=== PATIENT | female | born 1985 | race Caucasian/White ===

== ENCOUNTER 2016-11-17 14:44 | Outpatient (CLI) | payer BC ==
[~2016-11-17] VITALS: Ht 160 cm; Wt 83.9 kg
[~2016-11-17 14:44] MED LIST: ALBUAER2 INH; CALC500C3 PO; LORA10CA2 PO; PRENTAB26 PO
[2016-11-17 15:25] VITALS: Ht 160 cm; Wt 83.9 kg
[2016-11-17] MEDS ORDERED: FERR1TAB23 PO (16:14)
--- NOTE | 2016-11-17 16:44 | Progress Note ---
Progress Note Date of Service Nov 17, 2016. Progress Note Pt seen and examined for labor check Pt called the office with c/o irreg ctx at 37 weeks. . prior C/sec x 2 Scheduled for repeat c/sec o 11/30/16 VE on arrival is cl/thick/post unchanged after 1.5hrs of monitoring FHR; CAT1 Minimal infrequent ctx discussed finding with pt and her father plan D/c home with labor instructions
--- NOTE | 2016-11-17 16:46 | Discharge Instructions ---
Discharge Instructions Date of Service Nov 17, 2016. Admission Reason for Admission: Check Labor Discharge Discharge Diagnosis / Problem: labor check Discharge Goals Goal(s): Continuing OB care Activity Recommendations Activity Limitations: as noted below SPECIAL CARE INSTRUCTIONS: Call Doctor if: * Regular contractions every 5 minutes or greater than contractions in one hour. * Bleeding * Water breaks or is leaking * Decreased movement * Fever >100.4 degrees F * Pain not relieved by routine measures or pain medication ordered. FOLLOW UP VISIT: Return to Labor and Delivery on for /call for appointment time . Follow-up Visit with: When: . Current Hospital Diet Patient's current hospital diet: Discharge Diet Recommended Diet: Regular Diet Pending Studies Studies pending at discharge: no Medical Emergencies . Who to Call and When: Medical Emergencies: If at any time you feel your situation is an emergency, please call 911 immediately. . Non-Emergent Contact Non-Emergency issues call your: Specialist . . "Provider Documentation" section prepared by Harinder Posadas. . VTE Core Measure Inpt VTE Proph given/why not?: Treatment not indicated
[2016-11-21] MEDS ORDERED: FLVHFA110 INH (09:24)
[2016-11-21] MEDS ORDERED: ALBU18002 INH (09:24)
== END 2016-11-17 16:45 | disposition home or self-care (01) ==
LOC: C.OPB 14:44 → C.LD 14:44 → C.OPB 16:45
PROVIDERS: ATTEND Obstetrics & Gynecology
DX: Z34.83 Encounter for supervision of other normal pregnancy, third trimester (principal); Z3A.37 37 weeks gestation of pregnancy

== ENCOUNTER 2016-11-30 05:42 | Inpatient (IN) | payer BC ==
[2016-11-21 09:13] VITALS: BMI 33.0
--- NOTE | 2016-11-21 09:33 | PAT Medication Instructions ---
Service Date Nov 21, 2016. Current Home Medication List Albuterol Sulfate (Proair Respiclick), 2 PUFF INH DAILY PRN for SOB/Wheezing Calcium Carbonate (Tums), 2 TAB PO PRN Ferrous Sulfate (Iron), 1 TAB PO QPM Fluticasone Propionate (Flovent Hfa), 2 PUFFS INH BID Multivit/Min/Iron/Fol Ac/Pren ( Vitamin), 1 TAB PO QPM Medication Instructions For Your Scheduled Surgery - Hold the following medications the morning of surgery: Calcium Carbonate (Tums), 2 TAB PO PRN - Take the following medications the morning of surgery: Albuterol Sulfate (Proair Respiclick), 2 PUFF INH DAILY PRN for SOB/Wheezing ( BRING WITH YOU THE MORNING OF THE SURGERY) Fluticasone Propionate (Flovent Hfa), 2 PUFFS INH BID - Take the following medications as scheduled the night before surgery: Ferrous Sulfate (Iron), 1 TAB PO QPM Fluticasone Propionate (Flovent Hfa), 2 PUFFS INH BID Multivit/Min/Iron/Fol Ac/Pren ( Vitamin), 1 TAB PO QPM Calcium Carbonate (Tums), 2 TAB PO PRN If you have any questions please call us at [phone] or [phone] or [phone]
[2016-11-21 10:42] LABS: BASO % 0.2 %; BASO ABS # 0.02 K/uL (0-0.2); COMPLETE YES; EOS % 2.4 %; HEMATOCRIT 33.6 % (37-47); IG% 0.6 %; LYMPH % 14.5 %; LYMPH ABS # 1.27 K/uL (1.2-3.4); MEAN CELL VOLUME 92.3 fL (80-100); MEAN CORPUSCULAR HEMOGLOBIN 30.2 pg (25-34); MEAN CORPUSCULAR HGB CONC 32.7 g/dl (32-36); MEAN PLATELET VOLUME 9.6 fL (7.4-10.4); MONO % 6.2 %; NEUT % 76.1 %; PLATELET COUNT 236 K/uL (130-400); RED BLOOD COUNT 3.64 M/uL (4.2-5.4); WHITE BLOOD COUNT 8.76 K/uL (4.8-10.8)
--- NOTE | 2016-11-29 16:19 | HISTORY & PHYSICAL EXAMINATION ---
DATE OF ADMISSION: 11/30/2016 REASON FOR ADMISSION: Elective repeat section tomorrow, 11/30/2016. HISTORY OF PRESENT ILLNESS: The patient is a 31-year-old female 4, para 2-0-1-2 with 2 prior sections, admitted for an elective repeat section at 39+ weeks. PAST MEDICAL HISTORY: Positive for endometriosis, allergic rhinitis, and asthma. PAST SURGICAL HISTORY: Positive for x2, tonsils, laparoscopy, and dental surgery. MEDICATIONS: vitamins. ALLERGIES: ZITHROMAX. PHYSICAL EXAMINATION: HEENT: Within normal limits. LUNGS: Clear to auscultation. COR: Regular rate and rhythm. ABDOMEN: Soft, nontender, gravid. heart tone category 1. EXTREMITIES: Within normal limits. NEUROLOGICALLY: Intact. ASSESSMENT: Term with elective repeat section.
[~2016-11-30] VITALS: Ht 160 cm; Wt 86.5 kg
[2016-11-30] VITALS (14 sets, daily range): BP systolic 96–108; BP diastolic 55–63; PULSE 87–102; TEMP 36.3–37.1; O2SAT 94–98; Ht 160 cm; Wt 86.5 kg
[~2016-11-30 05:42] MED LIST changes: +ALBU18002 INH; -ALBUAER2 INH; +FERR1TAB23 PO; +FLVHFA110 INH; -LORA10CA2 PO
[2016-11-30] MEDS ORDERED: LACTATED RINGER'S 1000ML 1,000 ML IV ONE (05:52)
[2016-11-30] MEDS ORDERED: CEFAZOLIN IV 2,000 MG in DEXTROSE 5% 50ML IV SCH (06:00)
[2016-11-30] MEDS ORDERED: LACTATED RINGER'S 1000ML 1,000 ML IV SCH ×2 (06:00→09:02)
[2016-11-30] MEDS ORDERED: CITRIC ACID/SODIUM CITRATE 15 ML UDC PO ONE (06:00)
[2016-11-30] MEDS ORDERED: CITRIC ACID/SODIUM CITRATE 15 ML UDC PO SCH (06:00)
[2016-11-30] MEDS ORDERED: CEFAZOLIN IV 2,000 MG in DEXTROSE 5% 50ML 50 ML IV SCH (06:00)
[2016-11-30 06:08] LABS: BASO % 0.1 %; BASO ABS # 0.01 K/uL (0-0.2); COMPLETE YES; EOS % 3.1 %; HEMATOCRIT 32.2 % (37-47); IG% 0.5 %; LYMPH % 20.4 %; LYMPH ABS # 1.59 K/uL (1.2-3.4); MEAN CELL VOLUME 91.7 fL (80-100); MEAN CORPUSCULAR HEMOGLOBIN 30.5 pg (25-34); MEAN CORPUSCULAR HGB CONC 33.2 g/dl (32-36); MEAN PLATELET VOLUME 9.1 fL (7.4-10.4); MONO % 7.3 %; NEUT % 68.6 %; PLATELET COUNT 226 K/uL (130-400); RED BLOOD COUNT 3.51 M/uL (4.2-5.4); WHITE BLOOD COUNT 7.81 K/uL (4.8-10.8)
[2016-11-30] MEDS ORDERED: EpHEDrine SULFATE INJ 50 MG/ML AMP ONE (06:23)
[2016-11-30] MEDS ORDERED: PHENYLEPHRINE HCL INJ 10 MG/ML VIAL ONE (06:23)
[2016-11-30] MEDS ORDERED: SODIUM CHLORIDE 0.9% INJ 10 ML VIAL ONE (06:24)
[2016-11-30] MEDS ORDERED: OXYTOCIN INJ 10 UNITS/ML VIAL ONE ×4 (06:29→08:07)
[2016-11-30] MEDS ORDERED: PROMETHAZINE HCL INJ 12.5 MG in SODIUM CHLORIDE 0.9% 50ML 50 ML IV PRN (06:45)
[2016-11-30] MEDS ORDERED: PHENYLEPHRINE 100MCG/ML 5ML SYR IV PRN (06:45)
[2016-11-30] MEDS ORDERED: ONDANSETRON INJ 2 MG/ML 2 ML VIAL IV PRN ×2 (06:45→09:00)
[2016-11-30] MEDS ORDERED: EpHEDrine SULFATE INJ 50 MG/ML AMP IV PRN ×2 (06:45→09:00)
[2016-11-30] MEDS ORDERED: HYDROmorphone INJ 1 MG/ML SYR IV PRN (06:45)
[2016-11-30] MEDS ORDERED: FENTANYL CITRATE INJ 50 MCG/1 ML 2 ML VIAL IV PRN (06:45)
[2016-11-30] MEDS ORDERED: ATROPINE SULFATE 0.1 MG/ML 5ML SYR IV PRN (06:45)
[2016-11-30] MEDS ORDERED: FENTANYL CITRATE INJ 50 MCG/1 ML 2 ML VIAL ONE (06:52)
[2016-11-30] MEDS ORDERED: MoRPHine SULFATE PF 1 MG/ML 10 ML AMP/VIAL ONE (06:53)
--- NOTE | 2016-11-30 07:11 | History & Physical Bridge Note ---
H&P Re-Evaluation Bridge Note: I have examined the patient, reviewed the History & Physical and in the interval since the performance of the History & Physical I have noted the following changes of clinical significance: No changes noted
[2016-11-30] MEDS ORDERED: DiphenhydrAMINE HCL 50 MG/ML VIAL ONE (08:22)
[2016-11-30] MEDS ORDERED: LACTATED RINGER'S 1000ML 500 ML IV PRN (08:56)
[2016-11-30] MEDS ORDERED: NALOXONE HCL INJ 0.08 MG in SYRINGE 1.8 ML IV PRN (08:56)
[2016-11-30] MEDS ORDERED: SODIUM CHLORIDE 0.9% 1000ML 1,000 ML IV PRN (08:56)
[2016-11-30] MEDS ORDERED: NALOXONE HCL INJ 1 MG in SODIUM CHLORIDE 0.9% 1000ML 1,000 ML IV PRN ×4 (08:56)
[2016-11-30] MEDS ORDERED: DiphenhydrAMINE HCL 50 MG/ML VIAL IV PRN (09:00)
[2016-11-30] MEDS ORDERED: NALOXONE HCL 0.4 MG/1 ML VIAL/CARP IV PRN (09:00)
[2016-11-30] MEDS ORDERED: NO NARCOTICS OR SEDATIVES SCH (09:00)
[2016-11-30] MEDS ORDERED: MoRPHine SULFATE 2 MG/ML CARP IV PRN (09:00)
[2016-11-30] MEDS ORDERED: PROMETHAZINE HCL INJ 25 MG in SODIUM CHLORIDE 0.9% 50ML 50 ML IV PRN (09:00)
[2016-11-30] MEDS ORDERED: METOCLOPRAMIDE HCL INJ 20 MG in SODIUM CHLORIDE 0.9% 50ML 50 ML IV PRN (09:00)
[2016-11-30] MEDS ORDERED: MEPERIDINE HCL 25 MG/ML CARP IV PRN (09:00)
[2016-11-30] MEDS ORDERED: NALBUPHINE HCL INJ 10 MG/ML AMP IV PRN (09:00)
[2016-11-30] MEDS ORDERED: MoRPHine SULFATE PF 1 MG/ML 10 ML AMP/VIAL EPI PRN (09:00)
--- NOTE | 2016-11-30 09:02 | [facility] Post Operative Brief Note ---
Immediate Operative Summary Operative Date Nov 30, 2016. Pre-Operative Diagnosis term elective repeat Post-Operative Diagnosis same Procedure(s) Performed Repeat low segment transverse Surgeon Gucci Senior Design Engineering Specialist Surgeon(s) Katharina Estimated Blood Loss 600 ml Findings live male Apgars 8/9 weight pending Specimens placenta cord blood Drains Ponce 200 ml Anesthesia spinal Complication(s) None Disposition L&D
[2016-11-30] MEDS ORDERED: SUPERCREAM 0.870 % 15GM JAR EXT PRN (09:15)
[2016-11-30] MEDS ORDERED: MAGNESIUM HYDROXIDE SUSP 30 ML UDC PO PRN (09:15)
[2016-11-30] MEDS ORDERED: LANOLIN OINT EXT PRN ×2 (09:15)
[2016-11-30] MEDS ORDERED: BENZOCAINE 20% AER SPR 82.5 GM CAN EXT PRN (09:15)
[2016-11-30] MEDS ORDERED: HYDROCORTISONE ACETATE 25 MG SUPP PR PRN (09:15)
--- NOTE | 2016-11-30 09:36 | Anesthesiology Progress Note ---
Anesthesia Post Op Note Date & Time Nov 30, 2016 at 09:36 Notes Mental Status: alert / awake / arousable, participated in evaluation Pt Amnestic to Procedure: Yes Nausea / Vomiting: adequately controlled Pain: adequately controlled Airway Patency, RR, SpO2: stable & adequate BP & HR: stable & adequate Hydration State: stable & adequate Neuraxial Anesthesia: was administered, sensory block is resolving Anesthetic Complications: no major complications apparent Pt doing well. No n/v. VSS.
--- NOTE | 2016-11-30 10:14 | OPERATIVE REPORT ---
DATE OF OPERATION: 11/30/2016 PREOPERATIVE DIAGNOSIS: Term elective repeat section. POSTOPERATIVE DIAGNOSIS: Same. PROCEDURE: Repeat section, low segment transverse. SURGEON: Dr. Duckworth. TOOL SHAPER SET UP OPERATOR: Dr. Posadas. ANESTHESIA: Spinal. COMPLICATIONS: None. ESTIMATED BLOOD LOSS: 600 mL. TOTAL FLUIDS: 1300 mL. MONREAL: 300 mL. CLINICAL HISTORY: The patient is a 31-year-old female, para 2-0-0-2, at term, presenting for an elective repeat section. Consents were signed. Time out was called prior to the start of the procedure and antibiotics were given preop. DESCRIPTION OF PROCEDURE: Under satisfactory spinal anesthesia, the patient was prepped and draped in usual sterile fashion. She was tested for adequate anesthesia. A low segment transverse incision through a prior Pfannenstiel incision was made, carrying the incision down through the layers of the skin into the fascia which was removed and then the peritoneal cavity was then entered in a sharp fashion and extended bluntly in the AP diameter. Bladder blade was entered. A low segment transverse incision over the lower uterine segment was made after bladder was dissected down sharply with Metzenbaums. The amniotic fluid was noted to be clear. The baby was delivered from a vertex presentation with the aid of fundal pressure delivering a live male. There was a delayed cord clamping for about a minute followed by Apgars of 8 and 9. Cord blood was obtained. Placenta delivered spontaneously and intact. The uterus was exteriorized. Ring forceps were placed on both the angles in the inferior margin. The uterus was cleaned of all clots and debris. Uterus was closed in double layer closure with 0 Vicryl suture in a continuous interlocking fashion followed by a second imbricating suture of 0 Vicryl suture. It should be noted that the lower uterine segment was extremely thin. If patient is considering a repeat next go around this should be noted. Tubes and ovaries bilaterally were found to be within normal limits. The contents of the pelvic cavity were then irrigated. The initial sponge, needle and instrument count were found to be correct. The fascia was then reapproximated from both angles using 0 Vicryl suture in a continuous fashion. Subcuticular space was irrigated. Bleeders were then cauterized. Subcuticular layer was closed with 3-0 plain suture, followed by 4-0 Monocryl on the skin. Steri-Strips were applied. Clear urine was noted from the [place]. Estimated blood loss 600 mL. The final sponge, needle and instrument count were found to be correct. The patient was then placed supine on a stretcher and taken to recovery room in stable condition. I attest to the content of the Intraoperative Record and any orders documented therein. Any exception s are noted below.
[2016-11-30] MEDS: OXYTOCIN INJ 20 UNITS in LACTATED RINGER'S 1000ML 1,000 ML IV SCH ×2 (10:19→19:16)
[2016-11-30] MEDS: KETOROLAC TROMETHAMINE 30 MG/ML VIAL IV. PRN ×2 (11:02→21:59)
[2016-11-30] MEDS: SIMETHICONE 80 MG CHEW PO SCH ×3 (13:12→19:17)
[2016-11-30] MEDS ORDERED: ALBUTEROL HFA 8 GM INHALER INH PRN (15:15)
[2016-11-30] MEDS: DOCUSATE SODIUM 100 MG CAP PO SCH (19:17)
[2016-11-30] MEDS: FLUTICASONE HFA 110MCG INHALER INH SCH (19:18)
[2016-12-01 00:30] VITALS: O2SAT 96
[2016-12-01 01:40] VITALS: O2SAT 96
[2016-12-01] MEDS ORDERED: MEPERIDINE HCL 50 MG/ML CARP IV PRN ×2 (01:45)
[2016-12-01] MEDS ORDERED: KETOROLAC TROMETHAMINE 30 MG/ML VIAL IV. PRN (01:45)
[2016-12-01] MEDS ORDERED: ONDANSETRON INJ 2 MG/ML 2 ML VIAL IV PRN (01:45)
[2016-12-01] MEDS ORDERED: DC INTRASPINAL MORPHINE ONE (01:45)
[2016-12-01] MEDS ORDERED: OXYCODONE/ACETAMINOPHEN 5-325 TAB PO PRN (01:45)
[2016-12-01] MEDS ORDERED: DiphenhydrAMINE HCL 50 MG/ML VIAL IV PRN (01:45)
[2016-12-01 04:00] VITALS: BP 101/61; PULSE 89; TEMP 36.7
[2016-12-01] MEDS: IBUPROFEN 600 MG TAB PO PRN ×4 (06:13→22:44)
[2016-12-01] MEDS: OXYCODONE/ACETAMINOPHEN 5-325 TAB PO PRN ×4 (06:14→22:46)
[2016-12-01 07:27] VITALS: BP 106/64; PULSE 90; TEMP 36.9; O2SAT 95
[2016-12-01 07:30] VITALS: O2SAT 95
[2016-12-01] MEDS: FLUTICASONE HFA 110MCG INHALER INH SCH ×2 (07:56→20:11)
[2016-12-01] MEDS: DOCUSATE SODIUM 100 MG CAP PO SCH ×2 (07:56→20:11)
[2016-12-01] MEDS: FERROUS SULFATE 325 MG TAB PO SCH (07:56)
[2016-12-01] MEDS: SIMETHICONE 80 MG CHEW PO SCH ×4 (07:56→20:14)
[2016-12-01] MEDS: PRENATAL VITAMIN TAB PO SCH (07:56)
[2016-12-01 08:13] LABS: BASO % 0.1 %; BASO ABS # 0.01 K/uL (0-0.2); COMPLETE YES; EOS % 2.5 %; HEMATOCRIT 31.4 % (37-47); IG% 0.3 %; LYMPH % 10.4 %; LYMPH ABS # 1.17 K/uL (1.2-3.4); MEAN CELL VOLUME 91.5 fL (80-100); MEAN CORPUSCULAR HEMOGLOBIN 30.9 pg (25-34); MEAN CORPUSCULAR HGB CONC 33.8 g/dl (32-36); MEAN PLATELET VOLUME 8.9 fL (7.4-10.4); MONO % 4.3 %; NEUT % 82.4 %; PLATELET COUNT 234 K/uL (130-400); RED BLOOD COUNT 3.43 M/uL (4.2-5.4); WHITE BLOOD COUNT 11.22 K/uL (4.8-10.8)
[2016-12-01] MEDS ORDERED: DIPHTHERIA/TETANUS/PERTUSSIS 0.5 ML SYR/VIAL IM. ONE (09:00)
[2016-12-01] MEDS ORDERED: MEASLES, MUMPS & RUBELLA VIRUS VIAL SQ. ONE (09:00)
--- NOTE | 2016-12-01 09:24 | OB/GYN Progress Note ---
PLUGGER Progress Note Date of Service Dec 01, 2016. Subjective conversation w/ patient, physical exam Ambulation: ambulating normally Voiding: no voiding problems Passing Gas: Yes Diet Tolerance: Regular Diet Lochia: Small Feeding Type: Breast Feeding Pain: 03/01 Notes: Doing well, no concerns. Pain well controlled. Incision dressing removed and is clean,dry and intact. Tolerating regular diet, +flatus, -BM. Objective Vital Signs Date Time Temp Pulse Resp B/P (MAP) Pulse Ox O2 Delivery O2 Flow Rate FiO2 12/01/16 08:00 Room Air 12/01/16 07:27 36.9 90 14 106/64 (78) 95 Room Air 12/01/16 04:00 36.7 89 18 101/61 (74) Room Air 12/01/16 01:40 18 96 12/01/16 00:30 18 96 11/30/16 23:40 95 Room Air 11/30/16 23:40 36.3 88 18 96/56 (69) 95 Room Air 11/30/16 23:20 18 95 11/30/16 22:00 16 95 11/30/16 21:00 18 95 11/30/16 20:00 16 94 11/30/16 19:15 36.3 87 18 106/63 (77) 94 Room Air 11/30/16 19:10 18 96 11/30/16 18:10 18 96 11/30/16 17:10 18 96 11/30/16 16:10 20 98 11/30/16 15:10 20 96 11/30/16 15:10 37.0 92 20 108/62 (77) 96 Room Air 11/30/16 15:10 Room Air 11/30/16 15:10 Room Air 11/30/16 14:39 20 95 11/30/16 14:37 95 Room Air 11/30/16 14:34 37.1 102 20 107/55 (72) 95 Room Air Physical Exam General Appearance: WELL-APPEARING Respiratory/Chest: chest non-tender, lungs clear Cardiovascular: regular rate, rhythm Abdomen: normal bowel sounds, soft Fundus: Firm Incision Description: Clean, Dry & Intact Extremities: normal range of motion, non-tender, no calf tenderness Laboratory Results Last 24 Hours Test 12/01/16 08:02 White Blood Count 11.22 K/uL Red Blood Count 3.43 M/uL Hemoglobin 10.6 g/dL Hematocrit 31.4 % Mean Corpuscular Volume 91.5 fL Mean Corpuscular Hemoglobin 30.9 pg Mean Corpuscular Hemoglobin Concent 33.8 g/dl Platelet Count 234 K/uL Mean Platelet Volume 8.9 fL Neutrophils (%) (Auto) 82.4 % Lymphocytes (%) (Auto) 10.4 % Monocytes (%) (Auto) 4.3 % Eosinophils (%) (Auto) 2.5 % Basophils (%) (Auto) 0.1 % Neutrophils # (Auto) 9.25 K/uL Lymphocytes # (Auto) 1.17 K/uL Monocytes # (Auto) 0.48 K/uL Eosinophils # (Auto) 0.28 K/uL Basophils # (Auto) 0.01 K/uL RDW Standard Deviation 48.0 fL RDW Coefficient of Variation 14.4 % Immature Granulocyte % (Auto) 0.3 % Immature Granulocyte # (Auto) 0.03 K/uL Assessment and Plan Post-Op Day Number: 1 Continue Routine Care: -Continue routine postop care -Incision c/d/i -Advance diet and activity as tolerated.
[2016-12-01 16:35] VITALS: BP 118/69; PULSE 83; TEMP 36.6; O2SAT 97
[2016-12-01] MEDS ORDERED: BISACODYL 5 MG TABEC PO ONE (22:00)
[2016-12-02] VITALS: BP 101/59; PULSE 85; TEMP 36.6
[2016-12-02] MEDS: IBUPROFEN 600 MG TAB PO PRN ×2 (05:57→12:53)
[2016-12-02] MEDS: OXYCODONE/ACETAMINOPHEN 5-325 TAB PO PRN ×2 (05:57→12:53)
[2016-12-02] MEDS: DOCUSATE SODIUM 100 MG CAP PO SCH (07:21)
[2016-12-02] MEDS: SIMETHICONE 80 MG CHEW PO SCH ×2 (07:21→12:52)
[2016-12-02] MEDS: FERROUS SULFATE 325 MG TAB PO SCH (07:21)
[2016-12-02] MEDS: PRENATAL VITAMIN TAB PO SCH (07:21)
[2016-12-02] MEDS: FLUTICASONE HFA 110MCG INHALER INH SCH (07:22)
[2016-12-02 07:24] VITALS: BP 113/75; PULSE 80; TEMP 36.7; O2SAT 97
--- NOTE | 2016-12-02 08:33 | OB/GYN Progress Note ---
[facility] Progress Note Date of Service: Dec 02, 2016. Patient is seen and examined. She feels well, no complaints. Likes to go home Pain is under control with oral meds. Ambulating without dizziness Voiding without difficulty Tolerating regular diet with out N&V Flatus + BM neg Bleeding is minimal No fever/ chills/ CP/ SOB/ N&V/ Leg pain Breast feeding without problems Date Time Temp Pulse Resp B/P (MAP) Pulse Ox O2 Delivery O2 Flow Rate FiO2 12/02/16 07:24 36.7 80 16 113/75 (88) 97 Room Air 12/02/16 00:00 36.6 85 18 101/59 (73) 12/01/16 16:35 Room Air 12/01/16 16:35 36.6 83 18 118/69 (85) 97 Room Air PE: General: Alert, orientedx3, NAD CVS: S1S2 RRR Lungs; CTAB Abd: soft, NT, fundus firm, below Umbilicus Incision: Clean, dry, intact Perineum intact, Lochia rubra minimal Ext; NT, no edema AP: 31 yo s/p C Section, pod# 2 VSS Afebrile doing well Continue routine postop care Encourage ambulation, PO intake All questions were answered Instructions were given when to call D/C home , f/u in office
[2016-12-02] MEDS ORDERED: OXYC-57 PO (08:34)
[2016-12-02] MEDS ORDERED: MTR600X PO (08:34)
--- NOTE | 2016-12-02 08:35 | Discharge Instructions ---
Discharge Instructions Date of Service Dec 02, 2016. Admission Reason for Admission: Previous Section Delivery Discharge Discharge Diagnosis / Problem: Repeat Csection Discharge Goals Goal(s): Routine recovery after Medications Continue Dispensed Medications: lansinoh Activity Recommendations Activity Limitations: as noted below ACTIVITY RECOMMENDATIONS: * Gradual return to full activity over the next 2-3 weeks. * No lifting - nothing heavier than baby over the next 2-3 weeks. * Do not engage in vigorous exercise, sexual activity or sports until cleared by your physician. * Do not drive or operate any motorized equipment until cleared by your physician. * You may shower/bathe daily. BREAST CARE: If you are not breast feeding: * Wear a supportive bra 24 hours a day for one to two weeks. * Avoid stimulating your breasts and nipples as much as possible during the first few weeks after delivery. * When taking a shower, have the warm water hit your back, not breasts. * When your breasts feel full, apply ice packs. Usually three to four times a day helps ease the discomfort. * Take a mild pain medication (Tylenol/Motrin) when you are uncomfortable. If breast feeding: * Use breast milk to lubricate nipples. Lansinoh cream may be used for sore nipples. You do not need to remove cream prior to breast feeding. If using a different brand of cream, check the label for directions regarding removal of cream prior to nursing. * Wear a supportive bra. * If having problems with breasts or breast feeding, call a medical sales consultant or your health care provider. OVER THE COUNTER MEDICATION: * For discomfort or pain, you may use Acetaminophen (Tylenol), Ibuprofen (Advil ), or Naproxen (Aleve) following the package directions. * For constipation you may use Colace following the package directions. SPECIAL CARE INSTRUCTIONS: When you are discharged from the hospital, it is important for you to follow the instructions listed below: * During the first week at home, you should be able to care for yourself and your baby. In addition, the usual light household activities are encouraged. * Limit your activities to the way you feel. Do not try to clean the house or move furniture. Be sensible. * If you actively engage in sports and have done so up until the time of your delivery, you may resume these activities as soon as you feel able. This may take up to one month or even longer. Use good judgment. * Continue to take your vitamins for at least six weeks after the of your baby. * Your diet need not be limited unless you were on a special diet before your delivery. Breast-feeding mothers need around 2500 calories per day and at least 64-80 ounces of fluid per day (8 to 10 glasses). * You should eat foods from the four major food groups. Crash diets or fad diets are to be avoided. Eating lean meats, fresh fruits and vegetables, low-fat dairy products, high fiber foods and a regular exercise program, will help you get back to your pre- weight without putting your health at risk. * Constipation is sometimes a problem after delivery. Take a mild laxative as needed. If breast feeding, Milk of Magnesia is acceptable to use. You may use a suppository or Fleets enema if no episiotomy. * A daily shower or tub bath is suggested. Be sure to thoroughly and gently dry the perineum. * A bloody vaginal discharge will usually continue until around four weeks post . A small amount of bleeding may continue for as long as six weeks. Vaginal discharge changes from the bright red bleeding after delivery to pink then brownish and finally yellowish-pink before becoming white and disappearing. * Bleeding may increase with activity. Your first period may come in 4-8 weeks. If you are breast feeding, your period may be delayed even longer. * [place] (sex) can begin whenever both you and your partner feel comfortable and do not have any form of genital infection. It is recommended that you wait at least six weeks for internal and external healing to occur. If you have questions, please talk to your health care practitioner. A condom should be used to prevent infection and . * Foreplay, gentle intercourse and lubrication is very important the first several times to prevent pain. A water-based lubricant such as K-Y jelly or Astroglide may be used. * Tampons and/or Douching should be avoided until after six weeks check-up. * If you have RH negative blood and your baby is RH positive, you will receive RHOGAM by injection prior to discharge. The nurse will give you a card to keep with you that has the date and place that you received RHOGAM after delivery. * During your care, you had a Rubella screen done to check for the presence of rubella antibodies in your blood. If your test was negative, you will receive a Rubella vaccine prior to discharge. This vaccine may cause a fever, soreness at the injection site and flu-like symptoms. If these symptoms persist, notify your health care practitioner. is not advised for three months after a Rubella vaccine. * Verbalizes understanding of car seat law as reviewed with patient nursing. * Car Seat hand-out given and reviewed with patient by nursing. * Shaken baby information reviewed with patient by nursing. Call you doctor if: * Heavy bleeding (saturating several pads an hour) or passing clots the size of your fist. * A fever >101 degrees F (38.3 degrees C) on two occasions four hours apart and /or chills. * Unusual pain in the pelvic or vaginal areas. Pain should improve each day . * Call the doctor for any increased redness, drainage or swelling around the incision and any pain unrelieved by prescribed pain medication. * Any signs or symptoms of phlebitis (possible blood clots forming in the veins ): leg pain, warm, red or swollen area on leg. * "Baby Blues" lasting longer than two weeks. If you have any questions or concerns, call your health care practitioner at . FOLLOW-UP VISIT: * Incision check (staple removal) in 1 week. Please call doctor's office at to set up appointment. * Please call the office at to schedule a 6 week examination. It is important you keep this appointment. * It is important for you to make arrangements for either yearly or twice yearly check-ups thereafter. . Current Hospital Diet Patient's current hospital diet: Regular Diet Discharge Diet Recommended Diet: Regular Diet Procedures Procedures Performed: Repeat Caesarean Section Pending Studies Studies pending at discharge: no Medical Emergencies . Who to Call and When: Medical Emergencies: If at any time you feel your situation is an emergency, please call 241 immediately. . Non-Emergent Contact Non-Emergency issues call your: Surgeon Call Non-Emergent contact if: temperature is above 100.5, your pain is not controlled, your pain is worsening, wound has increased drainage, wound has increased redness, wound has increased pain . . "Provider Documentation" section prepared by Vamsi Metz. . VTE Core Measure Inpt VTE Proph given/why not?: Treatment not indicated
[2016-12-02 09:05] VITALS: O2SAT 97
[2016-12-02] MEDS ORDERED: BISACODYL 10 MG SUPP PR PRN (09:15)
[2016-12-02 13:00] VITALS: BP_DIAS 75; PULSE 80; TEMP 36.7
== END 2016-12-02 13:47 | disposition home or self-care (01) | DRG 766 ==
LOC: C.LD 05:42 → EDSTATUS 07:30 → C.OBG 15:16
PROVIDERS: ADMIT Obstetrics & Gynecology; ATTEND Obstetrics & Gynecology
PROC: 10D00Z1 Extraction of Products of Conception, Low, Open Approach (ICD-10-PCS; principal; 2016-11-30 07:30)
DX: O34.211 Maternal care for low transverse scar from previous cesarean delivery (principal); Z37.0 Single live birth; Z3A.39 39 weeks gestation of pregnancy